=== PATIENT | male | born 1980 | race Caucasian/White ===

== ENCOUNTER 2021-05-01 13:35 | Emergency (ER) | payer BC ==
[~2021-05-01 13:35] MED LIST: CIPRO500 MG PO; LEXAPRO TAB 1010 MG PO; NORCO 7.5-3251 EACH PO
== END 2021-05-01 14:26 | disposition home or self-care (01) ==
LOC: ER1 13:35
DX: U07.1 COVID-19 (principal); F17.200 Nicotine dependence, unspecified, uncomplicated
CPT/HCPCS: 99283